=== PATIENT | male | born 1965 | race Caucasian/White ===

== ENCOUNTER 2018-01-16 14:03 | Emergency (ER) | payer BC ==
[2018-01-16] MEDS ORDERED: HYDROmorphONE/DILAUDID 1 MG/ML INJ IVP ONE (14:07)
--- NOTE | 2018-01-16 14:16 | EDPHY ---
H & P <Zurdo Baeza S - Last Filed: 01/16/18 15:11> Stated Complaint: Left Shoulder Injury - Personal History Current Tetanus Diphtheria and Acellular Pertussis (TDAP): Yes - Medical/Surgical History Hx Asthma: No Hx Chronic Respiratory Disease: No Hx Diabetes: No Hx Cardiac Disease: No Hx Renal Disease: No Hx Cirrhosis: No Hx Alcoholism: No Hx HIV/AIDS: No Hx Splenectomy or Spleen Trauma: No Other PMH: denies - Social History Smoking Status: Never smoked <Clare Butcher - Last Filed: 01/16/18 15:17> Time Seen by Provider: 01/16/18 14:06 HPI/ROS: CHIEF COMPLAINT: Suspected left shoulder dislocation HISTORY OF PRESENT ILLNESS: 52-year-old male arrives via ambulance for suspected left shoulder dislocation. [place] the [facility] performing clean and jerk exercises over his head when he felt left shoulder pain, dropped a weight. No direct trauma or fall. The weight did not drop on him. He he is keeping his arm above his shoulder, unable to move secondary to pain. No prior history of similar Last oral intake was a few bananas breakfast today PRIMARY CARE PROVIDER: REVIEW OF SYSTEMS: 10 systems reviewed and negative with the exception of the elements mentioned in the history of present illness PAST MEDICAL & SURGICAL HISTORY: No prior history of dislocation SOCIAL HISTORY: Nonsmoker PHYSICAL EXAM (Prior to examination, patient consented to physical exam, hands were washed and my usual and customary physical exam procedures followed) 1) GENERAL: [Well-developed, well-nourished, alert and oriented. Appears uncomfortable 2) HEAD: Normocephalic, atraumatic 3) HEENT: Pupils equal, round, reactive to light bilaterally. Sclera anicteric. 4) NECK: Full range of motion, no meningeal signs. 5) LUNGS: Clear auscultation bilaterally, no wheezes, no rhonchi, no retractions. 6) HEART: Regular rate and rhythm, no murmur, no heave, no gallop. 7) ABDOMEN: No guarding, no rebound, no focal tenderness 8) MUSCULOSKELETAL: Left upper extremity is raised above the head. Decreased sensation left deltoid. Brisk pulses distally. Brisk capillary refill distally. Moving all extremities, no focal areas of tenderness, no obvious trauma. No peripheral edema or discoloration. 9) BACK: No CVA tenderness, no midline vertebral tenderness, no fluctuance, no step-off, no obvious trauma, no visual or palpable abnormality. 10) SKIN: No rash, no petechiae. 11) Psychiatric: Patient is oriented X 3, there is no agitation. DIFFERENTIAL DIAGNOSIS: In no particular include but limited to anterior dislocation, posterior dislocation, luxatio erecta (Clare Butcher) Constitutional: Initial Vital Signs Temperature (C) 36.7 C 01/16/18 14:07 Heart Rate 62 01/16/18 14:07 Respiratory Rate 18 01/16/18 14:07 Blood Pressure 142/97 H 01/16/18 14:07 O2 Sat (%) 99 01/16/18 14:07 O2 Delivery Mode [Post Room Air Procedure 4th] O2 Delivery Mode [Post Non-Rebreather Mask Procedure 3rd] O2 Delivery Mode [Post Non-Rebreather Mask Procedure 2nd] O2 Delivery Mode [Post Non-Rebreather Mask Procedure 1st] O2 Delivery Mode [Procedural Non-Rebreather Mask 1st] O2 Delivery Mode [.Immediate Non-Rebreather Mask Pre-Procedure] O2 Delivery Mode Room Air O2 (L/minute) [Post Procedure 15 3rd] O2 (L/minute) [Post Procedure 15 2nd] O2 (L/minute) [Post Procedure 15 1st] O2 (L/minute) [Procedural 1st] 15 O2 (L/minute) [.Immediate Pre- 15 Procedure] Allergies/Adverse Reactions: No Known Allergies Allergy (Unverified 01/16/18 14:06) Home Medications: Medication Instructions Recorded Hydrocodone/APAP 5/325 [Harriman 1 tab PO Q6 PRN #10 tab 01/16/18 5/325 (RX)] Medical Decision Making - Diagnostics Imaging: I viewed and interpreted images myself <Zurdo Baeza - Last Filed: 01/16/18 15:11> <Clare Butcher - Last Filed: 01/16/18 15:17> - Diagnostics Imaging Results: Imaging Impressions Shoulder X-Ray 01/16/18 14:06 Impression: Dislocated shoulder. Shoulder X-Ray 01/16/18 14:45 Impression: Reduction of the prior visualized anterior dislocation left shoulder with Hill-Sachs deformity. Imaging Impressions Shoulder X-Ray 01/16/18 14:06 Impression: Dislocated shoulder. Shoulder X-Ray 01/16/18 14:45 Impression: Reduction of the prior visualized anterior dislocation left shoulder with Hill-Sachs deformity. Images reviewed myself (Clare Butcher) Procedures: Procedure: Procedural sedation. Indication: Procedure: Dislocation reduction. A pre-sedation evaluation was completed on the patient at 1435 including medical history, allergies and medications, last oral intake, previous experience with sedation, airway assessment, physical examination. Patient is an appropriate candidate for procedural sedation. The risks, benefits, and alternatives of the sedation were discussed with the patient including but not limited to need for airway intervention, cardiovascular complications, ; and consent obtained. The patient is ASA class 1E.Mallampati and 3//2 airway assessments were completed. A time out was completed. The patient was sedated with propofol. The patient was monitored with continuous pulse oximetry , campus monitor and end tidal CO2. There were no complications and no significant hypoxemia. I remained at the bedside for the sedation. The total time I spent in the procedural sedation was 10 min. At 1510 the patient is alert, awake, and back to neurological and respiratory baseline. (Zurdo Baeza) 2:46 p.m.: Procedure: Dislocation reduction. Procedural sedation provided by Dr. Zurdo Baeza. The left inferior shoulder dislocation was reduced using my usual customary traction and counter traction technique without complications. Post reduction the patient's neurovascular exam is normal. Post reduction x-ray demonstrates reduction of the joint to the anatomic position. The procedure was performed by myself. Procedure: Splint An upper extremity sling was applied by ER non destructive evaluation technician. After application of the splint I returned and re-examined the patient. The splint was adequately immobilizing the joint and distal to the splint the patient's circulation and sensation were intact. Patient shows no signs of compartment syndrome. Was given orthopedic precautions. (Clare Butcher) ED Course/Re-evaluation: Patient was re-evaluated with serial examinations, procedural sedation with reduction in the ER. At 3:16 p.m., patient was answering questions appropriately, is is at bedside , he is smiling, states that he is feeling improvement after reduction. Explained to him and and his the importance of close follow-up with orthopedics. He has been informed the limitations of x- ray. Informed that non osseous injury not ruled out. I do not think that emergent MRI indicated from the ER at this time however I do think he will more than likely necessitate outpatient MRI. He would like to follow up with Dr. Adame. Usual and customary orthopedic precautions instructions provided (Clare Butcher) Other Provider: PHYSICIAN DOCUMENTATION: The patient was evaluated and managed by the Physician Curriculum Counselor and myself. I have reviewed the chart and agree with the findings and plan of care as documented. In addition, I examined the patient myself at 1435. History confirmed as shoulder dislocation at [facility]. Physical findings as follows: Lungs clear to auscultation, alert, conversant. See procedure note for sedation details. I am the secondary supervising physician. 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 If you received x-rays in the emergency department today, be advised, that ligamentous , tendon, muscular, and other non-bony injury cannot be fully ruled out. Try to keep your affected extremity elevated above the level of your chest, and keep cold packs on the affected area, for the next 48 hours. Referrals: Lbira Adame MD [Medical Doctor] - As per Instructions Prescriptions: Hydrocodone/APAP 5/325 [Harriman 5/325 (RX)] 1 tab PO Q6 PRN #10 tab PRN Reason: Pain, Severe
[2018-01-16] MEDS ORDERED: PROPOFOL/EMULSION 1,000 MG/100 ML BOTTLE IV ONE (14:40)
[2018-01-16] MEDS ORDERED: PROPOFOL 200 MG/20 ML VIAL IVP ONE (15:14)
[2018-01-16 15:38] VITALS: BP 159/90
== END 2018-01-16 15:39 | disposition home or self-care (01) ==
PROC: 0RSKXZZ Reposition Left Shoulder Joint, External Approach (ICD-10-PCS; principal; 2018-01-16)
DX: S43.032A Inferior subluxation of left humerus, initial encounter (principal); Y93.B3 Activity, free weights; Y92.39 Other specified sports and athletic area as the place of occurrence of the external cause
CPT/HCPCS: 96374; A4565; J1170; J2704